=== PATIENT | female | born 1990 | race American Indian/Alaskan Native ===

== ENCOUNTER 2018-11-16 03:12 | Inpatient (IN) | payer OTHER ==
[2018-11-16 03:20] VITALS: BMI 32.8
--- NOTE | 2018-11-16 03:43 | ED PDOC ---
Arrival/HPI - General Time Seen by Provider: 11/16/18 03:16 Historian: Patient - History of Present Illness Narrative History of Present Illness (Text): 11/16/18 03:16 Pradeep Ying is a 27 year old female, with a past medical history of diabetes, who presents to the emergency department for headache and fever since today. Patient informs of induced vaginal secondary to preeclampsia and is day 4. Patient's OBGYN instructed patient to visit emergency department if complaining of fever after delivery. Patient is noted to have a heart rate of 170 in the emergency department. Patient denies any chills, dizziness, chest pain, palpitations, shortness of breath, dyspnea on exertion, cough, abdominal pain, nausea, vomiting, diarrhea, back pain, neck pain, or any other complaint. Time/Duration: 24 hours Symptom Onset: Gradual Symptom Course: Unchanged Activities at Onset: Light Context: Home Past Medical History - Provider Review Nursing Documentation Reviewed: Yes - Reproductive Currently : No Family/Social History - Physician Review Nursing Documentation Reviewed: Yes Family/Social History: No Known Family HX Allergies/Home Meds Allergies/Adverse Reactions: Allergies No Known Allergies Allergy (Verified 11/16/18 17:11) Home Medications: Home Meds Medication Instructions Recorded Confirmed Ibuprofen [Advil] 200 mg PO PRN PRN 11/16/18 11/16/18 Review of Systems - Physician Review All systems were reviewed & negative as marked: Yes - Review of Systems Constitutional: Fevers. absent: Other (chills) Respiratory: absent: SOB, Cough Cardiovascular: absent: Chest Pain, [place] Gastrointestinal: absent: Abdominal Pain, Diarrhea, Nausea, Vomiting Musculoskeletal: absent: Back Pain, Neck Pain Neurological: Headache. absent: Dizziness Physical Exam Vital Signs Reviewed: Yes Vital Signs Temp Pulse Resp BP Pulse Ox 11/16/18 03:30 103 F H 151 H 20 146/76 100 Temperature: Febrile Blood Pressure: Normal Pulse: Tachycardic Respiratory Rate: Normal Appearance: Positive for: Well-Appearing, Non-Toxic, Comfortable Pain Distress: None Mental Status: Positive for: Alert and Oriented X 3 - Systems Exam Head: Present: Atraumatic, Normocephalic Pupils: Present: PERRL Extroacular Muscles: Present: EOMI Conjunctiva: Present: Normal Mouth: Present: Moist Mucous Membranes Neck: Present: Normal Range of Motion Respiratory/Chest: Present: Clear to Auscultation, Good Air Exchange. No: Respiratory Distress, Accessory Muscle Use Cardiovascular: Present: Normal S1, S2, Tachycardic. No: Murmurs Abdomen: No: Tenderness, Distention, Peritoneal Signs Back: Present: Normal Inspection Upper Extremity: Present: Normal Inspection. No: Cyanosis, Edema Lower Extremity: Present: Normal Inspection. No: Edema Skin: Present: Warm, Dry, Normal Color. No: Rashes Psychiatric: Present: Alert, Oriented x 3, Normal Insight, Normal Concentration Medical Decision Making ED Course and Treatment: 11/16/18 03:11 Impression: Patient is a 27 year old female who presents to the emergency department with headache and fever s/p induced secondary to preeclampsia and is day 4. Patient instructed by OBGYN to visit [facility] if complaining of fever. Differential Diagnosis included but are not limited to: Plan: -- Labs -- EKG -- Chest X-Ray -- Adesonine 6 mg/2ml Inj -- IV Fluids -- Urinalysis -- Reassess and disposition Prior Visits: Notes and results from previous visits were reviewed. Progress Notes: case d/w dr perez accepts case admit for sepsis attempts to reach pt ob unsuccessful - RAD Interpretation Radiology Orders: 11/16/18 03:42 CHEST PORTABLE [RAD] Stat - EKG Interpretation EKG Interpretation (Text): 11/16/18 07:02 sinus tachycardia rate 170 nssts changes - Scribe Statement The provider has reviewed the documentation as recorded by the Scribe Robert Lewis All medical record entries made by the Scribe were at my direction and personally dictated by me. I have reviewed the chart and agree that the record accurately reflects my personal performance of the history, physical exam, medical decision making, and the department course for this patient. I have also personally directed, reviewed, and agree with the discharge instructions and disposition. Disposition/Present on Arrival - Present on Arrival Any Indicators Present on Arrival: No - Disposition Have Diagnosis and Disposition been Completed?: Yes Diagnosis: Sepsis Disposition: HOSPITALIZED Disposition Time: 07:00 Patient Problems: Current Active Problems Problem Status Onset Sepsis Acute Condition: FAIR
[2018-11-16] MEDS ORDERED: Sodium Chloride 0.9% 1,000 ML IV SCH (03:45)
[2018-11-16 04:01] LABS: BASO # 0.01 K/mm3 (0.0-2.0); BASO % 0.1 % (0.0-3.0); EOS # 0.2 (0.0-0.7); EOS % 2.1 % (1.5-5.0); HEMOGLOBIN 10.9 g/dL (12.0-16.0); LYMPH # 1.8 (1.2-3.4); LYMPH % 16.1 % (22.0-35.0); MEAN CELL VOLUME 86.6 fl (80.0-105.0); MEAN CORPUSCULAR HEMOGLOBIN 28.6 pg (25.0-35.0); MEAN PLATELET VOLUME 9.5 fl (7.0-11.0); MONO # 0.5 (0.1-0.6); MONO % 4.8 % (1.0-6.0); RBC 3.81 10^6/uL (3.5-6.1); RED CELL DISTRIBUTION WIDTH 15.4 % (11.5-14.5); WHITE BLOOD COUNT 10.9 10^3/uL (4.5-11.0)
[2018-11-16 04:10] LABS: PH,URINE 7.5 (4.7-8.0); URINE BILIRUBIN NEGATIVE (NEGATIVE); URINE BLOOD LARGE (NEGATIVE); URINE GLUCOSE (UA) NEGATIVE (NEGATIVE); URINE LEUKOCYTE ESTERASE SMALL Leu/uL (NEGATIVE); URINE PROTEIN >=300 mg/dL (<30 mg/dL); URINE UROBILINOGEN 0.2 E.U./dL (<1 E.U./dL)
[2018-11-16 04:10] LABS: ALB/GLOB RATIO 0.8 (1.1-1.8); ALBUMIN 2.7 g/dL (3.0-4.8); ALT/SGPT 25 U/L (7-56); AST/SGOT 40 U/L (14-36); BLOOD UREA NITROGEN 10 mg/dL (7-21); CALCIUM 8.8 mg/dL (8.4-10.5); GFR NON-AFRICAN AMERICAN > 60
[2018-11-16 04:21] LABS: TROPONIN I 0.03 ng/mL
[2018-11-16 04:21] LABS: URINE APPEARANCE SL CLOUDY (CLEAR); URINE COLOR YELLOW (YELLOW)
[2018-11-16 04:23] LABS: URINE BACTERIA FEW /hpf; URINE RBC TNTC /hpf (0-2)
[2018-11-16 04:26] LABS: VENOUS BLOOD GAS BASE EXCESS 3.6 mmol/L (0.0-2.0); VENOUS BLOOD GAS PO2 53 mm/Hg (30-55); VENOUS BLOOD PH 7.51 (7.32-7.43)
[2018-11-16] MEDS ORDERED: Aztreonam 2 Gm in NS 100mL 100 ML IVPB STA (05:06)
[2018-11-16] MEDS ORDERED: Vancomycin 1gm in NS 250ml 1 GM/250 ML BAG IVPB STA (05:06)
[2018-11-16] MEDS ORDERED: Lactated Ringer's 1,800 ML IV SCH (05:15)
[2018-11-16] MEDS ORDERED: Sodium Chloride 0.9% 1,000 ML IV STA (06:49)
[2018-11-16 07:11] LABS: VENOUS BLOOD GAS BASE EXCESS 2.6 mmol/L (0.0-2.0); VENOUS BLOOD GAS PO2 38 mm/Hg (30-55); VENOUS BLOOD PH 7.43 (7.32-7.43)
--- NOTE | 2018-11-16 08:16 | RAD ---
Date of service: 11/16/2018 HISTORY: Fever COMPARISON: No prior. FINDINGS: LUNGS: No active pulmonary disease. PLEURA: No significant pleural effusion identified, no pneumothorax apparent. CARDIOVASCULAR: No aortic atherosclerotic calcification present. Normal cardiac size. No pulmonary vascular congestion. OSSEOUS STRUCTURES: No significant abnormalities. VISUALIZED UPPER ABDOMEN: Normal. OTHER FINDINGS: None. IMPRESSION: No active disease.
[2018-11-16 09:44] LABS: VENOUS BLOOD GAS BASE EXCESS 6.4 mmol/L (0.0-2.0); VENOUS BLOOD GAS PO2 29 mm/Hg (30-55); VENOUS BLOOD PH 7.48 (7.32-7.43)
--- NOTE | 2018-11-16 10:39 | CARD ---
APPROVED REPORT Date of service: 11/16/2018 EKG Measurement Heart [id number] <Conclusion> Sinus tachycardia Otherwise normal ECG
--- NOTE | 2018-11-16 10:40 | CARD ---
APPROVED REPORT Date of service: 11/16/2018 EKG Measurement Heart [id number] <Conclusion> Sinus tachycardia Otherwise normal ECG
[2018-11-16] MEDS ORDERED: Barium Sulfate Susp 2.1% w/v, 2.0% w/w 450 mL Bottle PO ONE (10:49)
--- NOTE | 2018-11-16 11:21 | PCM.SEPTIC ---
Sepsis Progress Note - Reassessment Type Date of Evaluation: 11/16/18 Time of Evaluation: :25 Reassessment Type: Non-invasive reassessment - Non Invasive Reassessment Were the most recent vital sign reviewed: Yes Vital Sign (Latest): Temp Pulse Resp BP Pulse Ox 99 F 118 H 20 134/79 98 11/16/18 09:19 11/16/18 09:19 11/16/18 09:19 11/16/18 09:19 11/16/18 09:19 Cardiovascular: Yes: Tachycardia Respiratory: Yes: Normal Breath Sounds. No: Rales, Rhonchi, Wheezing Capillary Refill: Normal (Less than 2 sec) Skin: Normal Color
--- NOTE | 2018-11-16 11:25 | CP.PCM.CON ---
<Timothy Muller - Last Filed: 11/16/18 13:17> History of Present Illness - History of Present Illness History of Present Illness: Timothy Muller D.O. PGY-3, Internal Medicine Resident, Infectious Disease Consultation Note 27 year old female with no significant PMH who presents 4 days post with fevers that stared yesterday. Infectious disease consultation requested for sepsis. Patient was seen and examined in ER bed 2. Patient states that she has been feeling unwell since yesterday and last night felt febrile. Patient tried to slept it off but had shaking chills and her said that she was "burning up." Patient had a 5lb 2 oz male at 36 weeks on 11/12 via vaginal delivery with no major complications. Patient denies having any issues with delivery of placenta or otherwise. Patient denies any pain in the breasts or issues with , in fact eager to get back to and seeing her baby. Patient passed a large blood clot Friday night but denies any malodorous discharge or discharge other than blood which has been slowly decreasing. Still has some lower abdominal/vaginal discomfort. States not sure if she had GBS testing. Of note, has not had a BM since the day before delivery so now 5 days. Review of Systems - Review of Systems All systems: reviewed and no additional remarkable complaints except (as per HPI) Past Patient History - Past Social History Smoking Status: Never Smoked - CARDIAC Other/Comment: preeclampsia - PULMONARY Hx Respiratory Disorders: No - NEUROLOGICAL Hx Neurological Disorder: No - HEENT Hx HEENT Problems: No - RENAL Hx Chronic Kidney Disease: No - ENDOCRINE/METABOLIC Hx Endocrine Disorders: No - HEMATOLOGICAL/ONCOLOGICAL Hx Blood Disorders: No - INTEGUMENTARY Hx Dermatological Problems: No - MUSCULOSKELETAL/RHEUMATOLOGICAL Hx Musculoskeletal Disorders: No - GASTROINTESTINAL Hx Gastrointestinal Disorders: No - GENITOURINARY/GYNECOLOGICAL Hx Genitourinary Disorders: No - PSYCHIATRIC Hx Psychophysiologic Disorder: No Hx Substance Use: No - SURGICAL HISTORY Hx Surgeries: No - ANESTHESIA Hx Anesthesia: No Meds Allergies/Adverse Reactions: Allergies Allergy/AdvReac Type Severity Reaction Status Date / Time No Known Allergies Allergy Verified 11/16/18 03:20 - Medications Medications: Current Medications Acetaminophen (Tylenol 325mg Tab) 650 mg PO Q4H PRN PRN Reason: Fever >100.5 F Bisacodyl (Dulcolax) 5 mg PO BID TIFFANIE Sodium Chloride (Sodium Chloride 0.9%) 1,000 mls @ 1,000 mls/hr IV .Q1H TIFFANIE Last Admin: 11/16/18 03:20 Dose: 1,000 mls/hr Lactated Ringer's (Lactated Ringer's) 1,800 mls @ 3,600 mls/hr IV .Q30M TIFFANIE Last Admin: 11/16/18 05:23 Dose: 3,600 mls/hr Sodium Chloride (Sodium Chloride 0.9%) 1,000 mls @ 100 mls/hr IV .Q10H STA Stop: 11/16/18 16:48 Last Admin: 11/16/18 07:33 Dose: 100 mls/hr Physical Exam - Constitutional Appears: Non-toxic, No Acute Distress - Head Exam Head Exam: ATRAUMATIC, NORMOCEPHALIC - Eye Exam Eye Exam: EOMI, PERRL. absent: Scleral icterus - ENT Exam ENT Exam: Mucous Membranes Moist, Normal Oropharynx - Neck Exam Neck exam: Positive for: Normal Inspection - Respiratory Exam Respiratory Exam: Clear to Auscultation Bilateral. absent: Rales, Rhonchi, Wheezes - Cardiovascular Exam Cardiovascular Exam: RRR, +S1, +S2. absent: Gallop, Rubs - GI/Abdominal Exam GI & Abdominal Exam: Hypoactive Bowel Sounds, Soft, Tenderness (mild suprapubic). absent: Distended - Extremities Exam Extremities exam: Positive for: normal capillary refill. Negative for: calf tenderness, pedal edema, tenderness - Neurological Exam Neurological exam: Alert, CN II-XII Intact, Oriented x3 - Psychiatric Exam Psychiatric exam: Anxious - Skin Skin Exam: Dry, Warm Results - Vital Signs Recent Vital Signs: Last Vital Signs Temp 99 F 11/16/18 09:19 Pulse 118 H 11/16/18 09:19 Resp 20 11/16/18 09:19 BP 134/79 11/16/18 09:19 Pulse Ox 98 11/16/18 09:19 - Labs Result Diagrams: 11/16/18 03:30 11/16/18 03:30 Labs: Laboratory Results - last 24 hr 11/16/18 11/16/18 11/16/18 03:24 03:30 03:30 WBC 10.9 RBC 3.81 Hgb 10.9 L Hct 33.0 L MCV 86.6 MCH 28.6 MCHC 33.0 RDW 15.4 H Plt Count 318 MPV 9.5 Neut % (Auto) 76.9 H Lymph % (Auto) 16.1 L [place] % (Auto) 4.8 Eos % (Auto) 2.1 Baso % (Auto) 0.1 Lymph # (Auto) 1.8 [place] # (Auto) 0.5 Eos # (Auto) 0.2 Baso # (Auto) 0.01 Absolute Neuts (auto) 8.38 H pO2 VBG pH VBG pCO2 VBG HCO3 VBG Total CO2 VBG O2 Sat (Calc) VBG Base Excess VBG Potassium Glucose Lactate FiO2 Crit Value Called To Crit Value Called By Blood Gas Notified Time Sodium 134 Potassium 4.1 Chloride 102 Carbon Dioxide 26 Anion Gap 10 BUN 10 Creatinine 0.9 Est GFR ( Amer) > 60 Est GFR (Non-Af Amer) > 60 POC Glucose (mg/dL) 84 Random Glucose 88 Calcium 8.8 Total Bilirubin 0.3 AST 40 H ALT 25 Alkaline Phosphatase 157 H Troponin I 0.03 Total Protein 6.1 Albumin 2.7 L Globulin 3.4 Albumin/Globulin Ratio 0.8 L Venous Blood Potassium Urine Color Urine Appearance Urine pH Ur Specific [place] Urine Protein Urine Glucose (UA) Urine Ketones Urine Blood Urine Nitrate Urine Bilirubin Urine Urobilinogen Ur Leukocyte Esterase Urine RBC Urine WBC Ur Epithelial Cells Urine Bacteria Influenza Typ A,B (EIA) 11/16/18 11/16/18 11/16/18 03:50 03:50 04:18 WBC RBC Hgb Hct MCV MCH MCHC RDW Plt Count MPV Neut % (Auto) Lymph % (Auto) [place] % (Auto) Eos % (Auto) Baso % (Auto) Lymph # (Auto) [place] # (Auto) Eos # (Auto) Baso # (Auto) Absolute Neuts (auto) pO2 53 VBG pH 7.51 H VBG pCO2 33.0 L VBG HCO3 26.3 VBG Total CO2 27.3 VBG O2 Sat (Calc) 92.4 H VBG Base Excess 3.6 H VBG Potassium 4.4 Glucose 92 Lactate 2.7 H FiO2 21.0 Crit Value Called To Carlos moreland rn ed Crit Value Called By [facility] Blood Gas Notified Time 426 Sodium 139.0 Potassium Chloride 106.0 Carbon Dioxide Anion Gap BUN Creatinine Est GFR ( Amer) Est GFR (Non-Af Amer) POC Glucose (mg/dL) Random Glucose Calcium Total Bilirubin AST ALT Alkaline Phosphatase Troponin I Total Protein Albumin Globulin Albumin/Globulin Ratio Venous Blood Potassium 4.4 Urine Color Yellow Urine Appearance Sl cloudy Urine pH 7.5 Ur Specific [place] 1.025 Urine Protein >=300 H Urine Glucose (UA) Negative Urine Ketones Negative Urine Blood Large H Urine Nitrate Negative Urine Bilirubin Negative Urine Urobilinogen 0.2 Ur Leukocyte Esterase Small H Urine RBC Tntc H Urine WBC 1 - 3 Ur Epithelial Cells 1 - 3 Urine Bacteria Few Influenza Typ A,B (EIA) Negative for flu a/b 11/16/18 11/16/18 06:47 09:20 WBC RBC Hgb Hct MCV MCH MCHC RDW Plt Count MPV Neut % (Auto) Lymph % (Auto) [place] % (Auto) Eos % (Auto) Baso % (Auto) Lymph # (Auto) [place] # (Auto) Eos # (Auto) Baso # (Auto) Absolute Neuts (auto) pO2 38 29 L VBG pH 7.43 7.48 H VBG pCO2 41.0 41.0 VBG HCO3 27.2 30.5 H VBG Total CO2 28.5 H 31.8 H VBG O2 Sat (Calc) 74.6 H 59.1 VBG Base Excess 2.6 H 6.4 H VBG Potassium 3.6 4.2 Glucose 79 96 Lactate 1.8 1.4 FiO2 21.0 21.0 Crit Value Called To Crit Value Called By Blood Gas Notified Time Sodium 139.0 141.0 Potassium Chloride 108.0 H 109.0 H Carbon Dioxide Anion Gap BUN Creatinine Est GFR ( Amer) Est GFR (Non-Af Amer) POC Glucose (mg/dL) Random Glucose Calcium Total Bilirubin AST ALT Alkaline Phosphatase Troponin I Total Protein Albumin Globulin Albumin/Globulin Ratio Venous Blood Potassium 3.6 4.2 Urine Color Urine Appearance Urine pH Ur Specific [place] Urine Protein Urine Glucose (UA) Urine Ketones Urine Blood Urine Nitrate Urine Bilirubin Urine Urobilinogen Ur Leukocyte Esterase Urine RBC Urine WBC Ur Epithelial Cells Urine Bacteria Influenza Typ A,B (EIA) Assessment & Plan - Assessment and Plan (Free Text) Assessment: 27 year old female with no significant PMH who presents 4 days post with fevers that stared yesterday. Infectious disease consultation requested for sepsis. Plan: Sepsis, possible endometritis given setting of recent STAT transvaginal US ordered Received aztreonam and vanco in the ER Given that she is lactating will start unasyn BCxs ordered Urine Cxs ordered Genital cxs ordered Received fluid bolus Will monitor closely Patient was seen and examined and case to be discussed with attending physician Thank you for the pleasure of participating in the care of this interesting patient - Date & Time Date: 11/16/18 Time: 09:30 <Babar Meza - Last Filed: 11/16/18 15:13> Meds - Medications Medications: Current Medications Acetaminophen (Tylenol 325mg Tab) 650 mg PO Q4H PRN PRN Reason: Fever >100.5 F Bisacodyl (Dulcolax) 5 mg PO BID TIFFANIE Last Admin: 11/16/18 12:49 Dose: 5 mg Sodium Chloride (Sodium Chloride 0.9%) 1,000 mls @ 1,000 mls/hr IV .Q1H TIFFANIE Last Admin: 11/16/18 03:20 Dose: 1,000 mls/hr Lactated Ringer's (Lactated Ringer's) 1,800 mls @ 3,600 mls/hr IV .Q30M TIFFANIE Last Admin: 11/16/18 05:23 Dose: 3,600 mls/hr Sodium Chloride (Sodium Chloride 0.9%) 1,000 mls @ 100 mls/hr IV .Q10H STA Stop: 11/16/18 16:48 Last Admin: 11/16/18 07:33 Dose: 100 mls/hr Doxycycline Hyclate 100 mg/ (Sodium Chloride) 100 mls @ 100 mls/hr IVPB Q12 TIFFANIE; Protocol Stop: 11/25/18 15:16 Meropenem (Merrem Iv 1 Gm Premix) 1 gm in 50 mls @ 100 mls/hr IVPB Q8 TIFFANIE; Protocol Stop: 11/25/18 15:16 Results - Vital Signs Recent Vital Signs: Last Vital Signs Temp 99 F 11/16/18 09:19 Pulse 118 H 11/16/18 09:19 Resp 20 11/16/18 09:19 BP 134/79 11/16/18 09:19 Pulse Ox 98 11/16/18 09:19 - Labs Result Diagrams: 11/16/18 03:30 11/16/18 03:30 Labs: Laboratory Results - last 24 hr 11/16/18 11/16/18 11/16/18 03:24 03:30 03:30 WBC 10.9 RBC 3.81 Hgb 10.9 L Hct 33.0 L MCV 86.6 MCH 28.6 MCHC 33.0 RDW 15.4 H Plt Count 318 MPV 9.5 Neut % (Auto) 76.9 H Lymph % (Auto) 16.1 L [place] % (Auto) 4.8 Eos % (Auto) 2.1 Baso % (Auto) 0.1 Lymph # (Auto) 1.8 [place] # (Auto) 0.5 Eos # (Auto) 0.2 Baso # (Auto) 0.01 Absolute Neuts (auto) 8.38 H pO2 VBG pH VBG pCO2 VBG HCO3 VBG Total CO2 VBG O2 Sat (Calc) VBG Base Excess VBG Potassium Glucose Lactate FiO2 Crit Value Called To Crit Value Called By Blood Gas Notified Time Sodium 134 Potassium 4.1 Chloride 102 Carbon Dioxide 26 Anion Gap 10 BUN 10 Creatinine 0.9 Est GFR ( Amer) > 60 Est GFR (Non-Af Amer) > 60 POC Glucose (mg/dL) 84 Random Glucose 88 Calcium 8.8 Total Bilirubin 0.3 AST 40 H ALT 25 Alkaline Phosphatase 157 H Troponin I 0.03 Total Protein 6.1 Albumin 2.7 L Globulin 3.4 Albumin/Globulin Ratio 0.8 L Venous Blood Potassium Urine Color Urine Appearance Urine pH Ur Specific [place] Urine Protein Urine Glucose (UA) Urine Ketones Urine Blood Urine Nitrate Urine Bilirubin Urine Urobilinogen Ur Leukocyte Esterase Urine RBC Urine WBC Ur Epithelial Cells Urine Bacteria Influenza Typ A,B (EIA) 11/16/18 11/16/18 11/16/18 03:50 03:50 04:18 WBC RBC Hgb Hct MCV MCH MCHC RDW Plt Count MPV Neut % (Auto) Lymph % (Auto) [place] % (Auto) Eos % (Auto) Baso % (Auto) Lymph # (Auto) [place] # (Auto) Eos # (Auto) Baso # (Auto) Absolute Neuts (auto) pO2 53 VBG pH 7.51 H VBG pCO2 33.0 L VBG HCO3 26.3 VBG Total CO2 27.3 VBG O2 Sat (Calc) 92.4 H VBG Base Excess 3.6 H VBG Potassium 4.4 Glucose 92 Lactate 2.7 H FiO2 21.0 Crit Value Called To Carlos moreland airborne and air delivery specialist Crit Value Called By [facility] Blood Gas Notified Time 426 Sodium 139.0 Potassium Chloride 106.0 Carbon Dioxide Anion Gap BUN Creatinine Est GFR ( Amer) Est GFR (Non-Af Amer) POC Glucose (mg/dL) Random Glucose Calcium Total Bilirubin AST ALT Alkaline Phosphatase Troponin I Total Protein Albumin Globulin Albumin/Globulin Ratio Venous Blood Potassium 4.4 Urine Color Yellow Urine Appearance Sl cloudy Urine pH 7.5 Ur Specific [place] 1.025 Urine Protein >=300 H Urine Glucose (UA) Negative Urine Ketones Negative Urine Blood Large H Urine Nitrate Negative Urine Bilirubin Negative Urine Urobilinogen 0.2 Ur Leukocyte Esterase Small H Urine RBC Tntc H Urine WBC 1 - 3 Ur Epithelial Cells 1 - 3 Urine Bacteria Few Influenza Typ A,B (EIA) Negative for flu a/b 11/16/18 11/16/18 06:47 09:20 WBC RBC Hgb Hct MCV MCH MCHC RDW Plt Count MPV Neut % (Auto) Lymph % (Auto) [place] % (Auto) Eos % (Auto) Baso % (Auto) Lymph # (Auto) [place] # (Auto) Eos # (Auto) Baso # (Auto) Absolute Neuts (auto) pO2 38 29 L VBG pH 7.43 7.48 H VBG pCO2 41.0 41.0 VBG HCO3 27.2 30.5 H VBG Total CO2 28.5 H 31.8 H VBG O2 Sat (Calc) 74.6 H 59.1 VBG Base Excess 2.6 H 6.4 H VBG Potassium 3.6 4.2 Glucose 79 96 Lactate 1.8 1.4 FiO2 21.0 21.0 Crit Value Called To Crit Value Called By Blood Gas Notified Time Sodium 139.0 141.0 Potassium Chloride 108.0 H 109.0 H Carbon Dioxide Anion Gap BUN Creatinine Est GFR ( Amer) Est GFR (Non-Af Amer) POC Glucose (mg/dL) Random Glucose Calcium Total Bilirubin AST ALT Alkaline Phosphatase Troponin I Total Protein Albumin Globulin Albumin/Globulin Ratio Venous Blood Potassium 3.6 4.2 Urine Color Urine Appearance Urine pH Ur Specific [place] Urine Protein Urine Glucose (UA) Urine Ketones Urine Blood Urine Nitrate Urine Bilirubin Urine Urobilinogen Ur Leukocyte Esterase Urine RBC Urine WBC Ur Epithelial Cells Urine Bacteria Influenza Typ A,B (EIA) Attending/Attestation - Attestation I have personally seen and examined this patient.: Yes I have fully participated in the care of the patient.: Yes I have reviewed all pertinent clinical information: Yes
--- NOTE | 2018-11-16 11:52 | US ---
Date of service: 11/16/2018 HISTORY: Fever. Abnormal lfts COMPARISON: None. TECHNIQUE: Sonographic evaluation of the right upper quadrant of the abdomen. FINDINGS: LIVER: Liver is enlarged measuring nearly 21 cm in CC dimension.. Liver demonstrates smooth contour and normal echotexture.. No mass. No intrahepatic bile duct dilatation. GALLBLADDER: Unremarkable. No gallstones. Probable gallbladder fold though small polyp not excluded COMMON BILE DUCT: Measures 5.4 mm. No stones. No dilatation. PANCREAS: Unremarkable as visualized. No mass. No ductal dilatation. RIGHT KIDNEY: Measures 13.3 x 4.3 x 4.3 cm in length. Normal echogenicity. No calculus, mass, or hydronephrosis. AORTA: No aneurysmal dilatation. IVC: Unremarkable. OTHER FINDINGS: None . IMPRESSION: Mild hepatomegaly.. Probable gallbladder fold though small polyp not excluded.
--- NOTE | 2018-11-16 12:23 | US ---
HISTORY: Leg pain and swelling. Evaluate for DVT PHYSICIAN(S): Ramana Glynn MD. TECHNIQUE: Duplex sonography and color-flow Doppler with graded compression were used to evaluate the deep venous systems of both lower extremities. FINDINGS: The visualized deep venous systems of both lower extremities are sonographically normal and compressible. Normal wave forms and augmentation are seen. There is no sonographic evidence for deep venous thrombosis in the visualized segments of both lower extremities. IMPRESSION: No sonographic evidence for deep venous thrombosis in the visualized segments of both lower extremities.
[2018-11-16] MEDS: Bisacodyl 5mg EC Tab PO SCH ×2 (12:49→19:53)
[2018-11-16] MEDS: Meropenem IV 1 gm in NS 1 GM/50 ML BAG IVPB SCH ×2 (15:24→21:19)
--- NOTE | 2018-11-16 15:31 | CT ---
Date of service: 11/16/2018 PROCEDURE: CT Chest with contrast (Pulmonary Angiogram) HISTORY: SEPSIS COMPARISON: None available. TECHNIQUE: Axial computed tomography images were obtained of the chest in the pulmonary arterial phase of enhancement. Coronal and sagittal reformatted images were created and reviewed. Intravenous contrast dose: 150 cc of Omni 350 Radiation dose: Total exam DLP = 333.68 mGy-cm. This CT exam was performed using one or more of the following dose reduction techniques: Automated exposure control, adjustment of the mA and/or kV according to patient size, and/or use of iterative reconstruction technique. FINDINGS: PULMONARY ARTERIES: Unremarkable. No pulmonary embolism. AORTA: No acute findings. No thoracic aortic aneurysm. No aortic atherosclerotic calcification or mural plaque present. LUNGS: Unremarkable. No nodule, mass or pulmonary consolidation. PLEURAL SPACES: Unremarkable. No effusion or pneumothorax. HEART: Unremarkable. No cardiomegaly. No significant pericardial effusion. LYMPH NODES: No lymphadenopathy. BONES, CHEST WALL: Unremarkable. No fracture or destructive lesion OTHER FINDINGS: Unremarkable. IMPRESSION: Unremarkable CT pulmonary angiogram. No pulmonary embolus.
--- NOTE | 2018-11-16 15:36 | CT ---
Date of service: 11/16/2018 PROCEDURE: CT Abdomen and Pelvis with contrast HISTORY: Constipation COMPARISON: None. TECHNIQUE: Contrast dose: 150 cc of Omni 350 Radiation dose: Total exam DLP = 614.85 mGy-cm. This CT exam was performed using one or more of the following dose reduction techniques: Automated exposure control, adjustment of the mA and/or kV according to patient size, and/or use of iterative reconstruction technique. FINDINGS: LOWER THORAX: Unremarkable. LIVER: Unremarkable. No gross lesion or ductal dilatation. GALLBLADDER AND BILE DUCTS: Unremarkable. PANCREAS: Unremarkable. No gross lesion or ductal dilatation. SPLEEN: Unremarkable. ADRENALS: Unremarkable. No mass. KIDNEYS AND URETERS: Unremarkable. No hydronephrosis. No solid mass. VASCULATURE: Unremarkable. No aortic aneurysm. No aortic atherosclerotic calcification or mural plaque present. BOWEL: Unremarkable. No obstruction. No gross mural thickening. APPENDIX: Normal appendix. PERITONEUM: Unremarkable. No free fluid. No free air. LYMPH NODES: Unremarkable. No enlarged lymph nodes. BLADDER: Unremarkable. REPRODUCTIVE: The uterus is enlarged and has a heterogeneous enhancement pattern. This is most likely due to fibroids. The uterine fundus measures 8.8 x 12 cm. Ultrasound follow-up may be indicated BONES: No acute fracture. OTHER FINDINGS: None. IMPRESSION: No acute intra-abdominal findings. The uterus is enlarged and has a heterogeneous enhancement pattern. This is most likely due to fibroids. The uterine fundus measures 8.8 x 12 cm
--- NOTE | 2018-11-16 17:17 | US ---
Date of service: 11/16/2018 HISTORY: ?endometritis, fever COMPARISON: None available. TECHNIQUE: Transvaginal pelvic ultrasound CT abdomen pelvis with contrast performed 11/16/18 FINDINGS: Examination markedly limited due to patient discomfort. UTERUS: Measures 16.1 x 5.3 x 12.0 cm. Heterogeneous. Anteverted. ENDOMETRIUM: Measures 1.4 cm in diameter and appears heterogeneous with fluid and/or blood products. No evidence of hypervascularity. CERVIX: No cervical abnormality identified. RIGHT OVARY: Measures 3.5 x 1.9 x 4.6 cm. Blood flow is demonstrated. LEFT OVARY: Measures 4.0 x 1.9 x 4.1 cm. Blood flow is demonstrated. FREE FLUID: No significant free fluid noted. OTHER FINDINGS: None. IMPRESSION: Limited study as above. heterogeneous uterus. Endometrium measures approximately 1.4 cm with small fluid and/or blood products.
[2018-11-16] MEDS ORDERED: Pneumococcal 23-Valent Vaccine IM ONE (17:35)
[2018-11-16] MEDS ORDERED: Influenza Vaccine 60 mcg/0.5 mL SYR (4YR UP) IM ONE (17:35)
[2018-11-16] MEDS: Sodium Chloride 0.9% 1,000 ML IV SCH (23:24)
[2018-11-17] MEDS: Meropenem IV 1 gm in NS 1 GM/50 ML BAG IVPB SCH ×3 (05:30→22:24)
[2018-11-17 07:40] LABS: BASO # 0.02 K/mm3 (0.0-2.0); BASO % 0.2 % (0.0-3.0); EOS # 0.1 (0.0-0.7); EOS % 1.2 % (1.5-5.0); LYMPH % 19.1 % (22.0-35.0); MEAN CELL VOLUME 87.4 fl (80.0-105.0); MEAN CORPUSCULAR HEMOGLOBIN 27.9 pg (25.0-35.0); MEAN CORPUSCULAR HGB CONC 31.9 g/dl (31.0-37.0); MEAN PLATELET VOLUME 9.1 fl (7.0-11.0); MONO # 1.2 (0.1-0.6); MONO % 11.6 % (1.0-6.0); RBC 3.58 10^6/uL (3.5-6.1); RED CELL DISTRIBUTION WIDTH 15.7 % (11.5-14.5); WHITE BLOOD COUNT 10.5 10^3/uL (4.5-11.0)
[2018-11-17 07:52] LABS: ALB/GLOB RATIO 0.8 (1.1-1.8); ALBUMIN 2.7 g/dL (3.0-4.8); ALT/SGPT 35 U/L (7-56); AST/SGOT 65 U/L (14-36); BLOOD UREA NITROGEN 7 mg/dL (7-21); CALCIUM 8.3 mg/dL (8.4-10.5); GFR NON-AFRICAN AMERICAN > 60
[2018-11-17] MEDS: Sodium Chloride 0.9% 1,000 ML IV SCH (09:27)
[2018-11-17] MEDS: Bisacodyl 5mg EC Tab PO SCH ×2 (09:27→17:42)
[2018-11-17] MEDS: Enoxaparin 40 mg Syringe SC SCH (09:28)
--- NOTE | 2018-11-17 16:08 | CP.PCM.PN ---
<Timothy Muller - Last Filed: 11/17/18 16:04> Subjective - Date & Time of Evaluation Date of Evaluation: 11/17/18 Time of Evaluation: 09:10 - Subjective Subjective: Timothy Muller D.O. PGY-3, Internal Medicine Resident, Infectious Disease Progress Note 27 year old female with no significant PMH who presents 4 days post with fevers that stared yesterday. Infectious disease consultation requested for sepsis. Patient was seen and examined at bedside. Doing significantly better. Very comfortable. Wants to go home. Was able to defecate. Objective - Vital Signs/Intake and Output Vital Signs (last 24 hours): Temp Pulse Resp BP Pulse Ox 98.0 F 97 H 18 144/95 H 98 11/17/18 12:00 11/17/18 12:00 11/17/18 12:00 11/17/18 12:00 11/16/18 09:19 Intake and Output: 11/17/18 11/17/18 06:59 18:59 Intake Total 2840 Balance 2840 - Medications Medications: Current Medications Acetaminophen (Tylenol 325mg Tab) 650 mg PO Q4H PRN PRN Reason: Headache Bisacodyl (Dulcolax) 5 mg PO BID [facility] Last Admin: 11/17/18 09:27 Dose: 5 mg Enoxaparin Sodium (Lovenox) 40 mg SC DAILY [facility]; Protocol Last Admin: 11/17/18 09:28 Dose: 40 mg Famotidine (Pepcid) 20 mg PO 1000,2200 [facility] Last Admin: 11/17/18 09:28 Dose: 20 mg Doxycycline Hyclate 100 mg/ (Sodium Chloride) 100 mls @ 100 mls/hr IVPB Q12 [facility]; Protocol Stop: 11/25/18 15:16 Last Admin: 11/17/18 09:28 Dose: 100 mls/hr Meropenem (Merrem Iv 1 Gm Premix) 1 gm in 50 mls @ 100 mls/hr IVPB Q8 [facility]; Protocol Stop: 11/25/18 15:16 Last Admin: 11/17/18 14:16 Dose: 100 mls/hr Sodium Chloride (Sodium Chloride 0.9%) 1,000 mls @ 100 mls/hr IV .Q10H [facility] Last Admin: 11/17/18 09:27 Dose: 100 mls/hr - Labs Labs: 11/17/18 07:00 11/17/18 07:00 - Constitutional Appears: Non-toxic, No Acute Distress - Head Exam Head Exam: ATRAUMATIC, NORMOCEPHALIC - Eye Exam Eye Exam: EOMI, PERRL. absent: Scleral icterus - ENT Exam ENT Exam: Mucous Membranes Moist, Normal Oropharynx - Neck Exam Neck exam: Positive for: Normal Inspection - Respiratory Exam Respiratory Exam: Clear to Auscultation Bilateral. absent: Rales, Rhonchi, Wheezes - Cardiovascular Exam Cardiovascular Exam: RRR, +S1, +S2. absent: Gallop, Rubs - GI/Abdominal Exam GI & Abdominal Exam: soft, NT, ND - Extremities Exam Extremities exam: Positive for: normal capillary refill. Negative for: calf tenderness, pedal edema, tenderness - Neurological Exam Neurological exam: Alert, CN II-XII Intact, Oriented x3 - Skin Skin Exam: Dry, Warm Assessment and Plan - Assessment and Plan (Free Text) Assessment: 27 year old female with no significant PMH who presents 4 days post with fevers that stared yesterday. Infectious disease consultation requested for sepsis. Plan: Sepsis, possible endometritis given setting of recent vs urinary tract infection Urine growing gram negative angela Currently on doxy/merrem day 2 BCxs ordered Urine Cxs negative 2/2 day 2 Genital cxs pending We will follow with you Patient was seen and examined and case to be discussed with attending physician Thank you for the pleasure of participating in the care of this interesting patient <Babar Meza - Last Filed: 11/17/18 16:38> Objective - Vital Signs/Intake and Output Vital Signs (last 24 hours): Temp Pulse Resp BP Pulse Ox 98.0 F 97 H 18 144/95 H 98 11/17/18 12:00 11/17/18 12:00 11/17/18 12:00 11/17/18 12:00 11/16/18 09:19 Intake and Output: 11/17/18 11/17/18 06:59 18:59 Intake Total 2840 Balance 2840 - Medications Medications: Current Medications Acetaminophen (Tylenol 325mg Tab) 650 mg PO Q4H PRN PRN Reason: Headache Bisacodyl (Dulcolax) 5 mg PO BID [facility] Last Admin: 11/17/18 09:27 Dose: 5 mg Enoxaparin Sodium (Lovenox) 40 mg SC DAILY [facility]; Protocol Last Admin: 11/17/18 09:28 Dose: 40 mg Famotidine (Pepcid) 20 mg PO 1000,2200 [facility] Last Admin: 11/17/18 09:28 Dose: 20 mg Doxycycline Hyclate 100 mg/ (Sodium Chloride) 100 mls @ 100 mls/hr IVPB Q12 S ; Protocol Stop: 11/25/18 15:16 Last Admin: 11/17/18 09:28 Dose: 100 mls/hr Meropenem (Merrem Iv 1 Gm Premix) 1 gm in 50 mls @ 100 mls/hr IVPB Q8 [facility]; Protocol Stop: 11/25/18 15:16 Last Admin: 11/17/18 14:16 Dose: 100 mls/hr Sodium Chloride (Sodium Chloride 0.9%) 1,000 mls @ 100 mls/hr IV .Q10H [facility] Last Admin: 11/17/18 09:27 Dose: 100 mls/hr - Labs Labs: 11/17/18 07:00 11/17/18 07:00 Attending/Attestation - Attestation I have personally seen and examined this patient.: Yes I have fully participated in the care of the patient.: Yes I have reviewed all pertinent clinical information, including history, physical exam and plan: Yes
--- NOTE | 2018-11-17 19:44 | CON ---
DATE: 11/17/2018 HISTORY OF PRESENT ILLNESS: This is a 27-year-old G2, P1-0-1-1, status post spontaneous vaginal delivery of a male , weighing 5 pounds 14 ounces at [facility] on 11/11/2018. The patient reports that she had been induced on 11/10/2018 for preeclampsia, received IV magnesium and delivered on 11/11/2018. She reports that she started having severe chills, needed 3 comforters on 11/15/2018. She also started feeling tingling in her fingers and toes and had a very bad headache. She also reports that she had passed a huge clot on 11/14/2018. The patient was admitted to [facility] yesterday for a fever and sepsis and has been treated with antibiotics. The patient reports that she is only spotting now and she feels much better and that most of her symptoms have resolved. She does report an on and off headache, worse with lying down. Patient denies vision changes, upper abdominal pain, nausea, and vomiting. Patient reports that she will start breast pumping and discarding the milk for now. PAST MEDICAL HISTORY: Healthy. She has sickle cell trait. PAST SURGICAL HISTORY: None. MEDICATIONS: Acetaminophen as needed, Dulcolax, doxycycline 100 mg IV every 12 hours, Lovenox 40 subcutaneously daily, Pepcid 20 mg p.o., meropenem 1 g every 8 hours, and normal saline. ALLERGIES: NO KNOWN DRUG ALLERGIES. SOCIAL HISTORY: The patient denies tobacco, alcohol, or illicit drug use. FAMILY HISTORY: Maternal grandmother from breast cancer and she has a sister with sickle cell disease. OBSTETRICAL HISTORY: The patient underwent miscarriage in 2016, did not need D and C. Recent delivery as above. GYNECOLOGIC HISTORY: Menarche at 13, regular periods. The patient reports history of Chlamydia about 10 years ago and denies any abnormal Pap. PHYSICAL EXAMINATION: VITAL SIGNS: She has been afebrile. Her T-max was 103 at 03:30 in the morning on 11/16/2018. She has been afebrile for 24 hours now. Her pulse when she first came in, she was tachycardic, 151 with admission; her pulse is now 94 and her most recent blood pressure is 144/96. BP's range 120's -140's/60's-90's GENERAL: The patient appears well, sitting up in bed, no acute distress, and nontoxic. HEART: Regular rate and rhythm. LUNGS: Clear to auscultation bilaterally. ABDOMEN: Soft and nontender. Fundus is firm and nontender EXTREMITIES: Nontender. No edema. LABORATORY DATA: Yesterday, white blood cell count was 10.9, today is 10.5; hemoglobin yesterday was 10.9 and it is now 10 and platelets are stable. Her blood culture - there is no growth after 24 hours. IMAGING: Transvaginal ultrasound on 11/16/2018: Endometrium measures 1.4 cm with small fluid and/or blood products. Chest, abdomen and pelvis CT scan on 11/16/2018: Impression was no acute intraabdominal findings. The uterus is enlarged and has a heterogenous enhancement pattern, this is most likely due to fibroids, uterine fundus measures 8.8 x [address] on 11/16/2018: unremarkable CT pulmonary angiogram: no pulmonary embolus. ASSESSMENT AND PLAN: This is a 27-year-old 2, para 1-0-1-1, status post vaginal delivery on 11/11/2018 who was admitted with fever/sepsis. She is now currently on IV meropenem and IV doxycycline and has been afebrile for 24 hours. Urine and blood cultures are still pending. Her bleeding is spotting now. Tylenol ordered as needed for headache Recommend that she stay on vitamins as long as she is . Recommend that she follow up with her OB a few days after discharge home to follow blood pressure. Binh Adams MD TUCKER
[2018-11-17 20:14] LABS: HEPATITIS B SURFACE AG Negative (NEGATIVE)
[2018-11-17 20:20] LABS: HEPATITIS A IGM NEGATIVE (NEGATIVE); HEPATITIS B CORE AB NEGATIVE (NEGATIVE)
[2018-11-17 20:32] LABS: HEPATITIS C ANTIBODY NEGATIVE (NEGATIVE)
--- NOTE | 2018-11-17 20:33 | HP ---
DATE OF EXAM: 11/16/2018 CHIEF COMPLAINT: A 27-year-old female who came in with fever of 103. HISTORY OF PRESENT ILLNESS: Iris day #4 came to the ER, because she is having chills, fever at home for a day or 2, got worse, and came to the ER for evaluation. The patient denied any foul smelling vaginal discharge. Denied dysuria. Denied abdominal pain or chest pain. She did have mild headache that seems better. She has no nausea, no vomiting, no diarrhea, and no cough. No other symptoms associated with fever, chills and feeling weak. PAST MEDICAL HISTORY: As I mentioned, she is day #4. FAMILY HISTORY: Noncontributory. ALLERGIES: NO KNOWN ALLERGIES. MEDICATIONS AT HOME: She does not really take p.r.n. REVIEW OF SYSTEMS: Negative except above symptoms, but all system reviews were negative. PHYSICAL EXAMINATION: GENERAL: The patient was seen and examined. VITAL SIGNS: When she came in; her temperature 103, heart rate 128, blood pressure 132/80, respirations 21, and saturation 99% on room air. HEAD AND NECK: Normal. No JVD. No thyromegaly. CHEST: Clear bilaterally. CARDIAC: First sound and second sound normal. No murmur, rub or gallop. ABDOMEN: Soft and nontender. EXTREMITIES: No edema. NEUROLOGIC: Normal. LABORATORY STUDIES: The patient had white count 10.9, hemoglobin 10.9, hematocrit 33, and platelets 318. Sodium 134, potassium 4.1, chloride 102, bicarb 26, BUN 10, and creatinine 0.9. Liver function test, elevation of AST 40 and alk phos of 157, otherwise total bilirubin is normal and AST is normal. The patient also when she came in, she had EKG sinus tachy, otherwise, normal EKG. Chest x-ray shows no active pulmonary disease. IMPRESSION AND PLAN: 1. This is a 27-year-old female with fever. We will admit the patient, blood cultures, urine cultures, and we will start the patient on vancomycin and get Infectious Disease consult. 2. Abnormal liver function test benign exam. We will get ultrasound of the liver and gallbladder. Also, we are going to get venous Doppler of both lower extremities and if there is no obvious source for infection and fever, thromboembolic phenomena in this patient with high risk for deep venous thrombosis and tachycardia. We will get CT angio of the chest and CT abdomen and pelvis with IV contrast. We will continue current therapy, IV fluid, and Tylenol p.r.n. for fever. Continue recommendation by ID. We will give GI and DVT prophylaxes and also give her Dulcolax for constipation. Brian Neely MD
[2018-11-17 20:41] LABS: HEMOGLOBIN 10.2 g/dL (12.0-16.0); MEAN CELL VOLUME 87.7 fl (80.0-105.0); MEAN CORPUSCULAR HEMOGLOBIN 28.4 pg (25.0-35.0); MEAN CORPUSCULAR HGB CONC 32.4 g/dl (31.0-37.0); RBC 3.59 10^6/uL (3.5-6.1); RED CELL DISTRIBUTION WIDTH 15.5 % (11.5-14.5); WHITE BLOOD COUNT 9.4 10^3/uL (4.5-11.0)
[2018-11-17 20:47] LABS: ALB/GLOB RATIO 0.8 (1.1-1.8); ALBUMIN 2.6 g/dL (3.0-4.8); ALT/SGPT 29 U/L (7-56); AST/SGOT 54 U/L (14-36); BLOOD UREA NITROGEN 9 mg/dL (7-21); CALCIUM 8.4 mg/dL (8.4-10.5); GFR NON-AFRICAN AMERICAN > 60
[2018-11-17 23:27] VITALS: O2SAT 100
[2018-11-18] MEDS: Sodium Chloride 0.9% 1,000 ML IV SCH ×3 (03:11→16:38)
[2018-11-18] MEDS: Meropenem IV 1 gm in NS 1 GM/50 ML BAG IVPB SCH ×3 (05:58→21:43)
[2018-11-18 07:46] LABS: BASO # 0.03 K/mm3 (0.0-2.0); BASO % 0.3 % (0.0-3.0); EOS # 0.4 (0.0-0.7); HEMOGLOBIN 10.8 g/dL (12.0-16.0); LYMPH # 2.7 (1.2-3.4); LYMPH % 30.8 % (22.0-35.0); MEAN CORPUSCULAR HGB CONC 32.1 g/dl (31.0-37.0); MEAN PLATELET VOLUME 8.9 fl (7.0-11.0); MONO # 0.8 (0.1-0.6); RBC 3.86 10^6/uL (3.5-6.1); RED CELL DISTRIBUTION WIDTH 15.5 % (11.5-14.5); WHITE BLOOD COUNT 8.7 10^3/uL (4.5-11.0)
[2018-11-18] MEDS: Bisacodyl 5mg EC Tab PO SCH ×3 (10:47→18:01)
[2018-11-18] MEDS: Enoxaparin 40 mg Syringe SC SCH (10:47)
--- NOTE | 2018-11-18 14:44 | CP.PCM.PN ---
<Timothy Muller - Last Filed: 11/18/18 14:39> Subjective - Date & Time of Evaluation Date of Evaluation: 11/18/18 Time of Evaluation: 09:50 - Subjective Subjective: Timothy Muller D.O. PGY-3, Internal Medicine Resident, Infectious Disease Progress Note 27 year old female with no significant PMH who presents 4 days post with fevers that stared yesterday. Infectious disease consultation requested for sepsis. Patient was seen and examined at bedside. Feeling remarkably better. Wants to go home. Objective - Vital Signs/Intake and Output Vital Signs (last 24 hours): Temp Pulse Resp BP Pulse Ox 97.9 F 83 18 128/87 100 11/18/18 12:00 11/18/18 14:00 11/18/18 12:00 11/18/18 12:00 11/18/18 06:00 Intake and Output: 11/18/18 11/18/18 06:59 18:59 Intake Total 2160 Balance 2160 - Medications Medications: Current Medications Acetaminophen (Tylenol 325mg Tab) 650 mg PO Q4H PRN PRN Reason: Headache Bisacodyl (Dulcolax) 5 mg PO BID [facility] Last Admin: 11/18/18 10:49 Dose: Not Given Doxycycline Hyclate (Doryx) 100 mg PO Q12 [facility]FF[facility]IE; Protocol Last Admin: 11/18/18 10:47 Dose: 100 mg Enoxaparin Sodium (Lovenox) 40 mg SC DAILY [facility]IE; Protocol Last Admin: 11/18/18 10:47 Dose: 40 mg Famotidine (Pepcid) 20 mg PO 1000,2200 [facility] Last Admin: 11/18/18 10:47 Dose: 20 mg Meropenem (Merrem Iv 1 Gm Premix) 1 gm in 50 mls @ 100 mls/hr IVPB Q8 [facility]IE; Protocol Stop: 11/25/18 15:16 Last Admin: 11/18/18 05:58 Dose: 100 mls/hr Sodium Chloride (Sodium Chloride 0.9%) 1,000 mls @ 100 mls/hr IV .Q10H [facility] Last Admin: 11/18/18 03:11 Dose: 100 mls/hr - Labs Labs: 11/18/18 07:30 11/17/18 20:15 - Constitutional Appears: Non-toxic, No Acute Distress - Head Exam Head Exam: ATRAUMATIC, NORMOCEPHALIC - Eye Exam Eye Exam: EOMI, PERRL. absent: Scleral icterus - ENT Exam ENT Exam: Mucous Membranes Moist, Normal Oropharynx - Neck Exam Neck exam: Positive for: Normal Inspection - Respiratory Exam Respiratory Exam: Clear to Auscultation Bilateral. absent: Rales, Rhonchi, Wheezes - Cardiovascular Exam Cardiovascular Exam: RRR, +S1, +S2. absent: Gallop, Rubs - GI/Abdominal Exam GI & Abdominal Exam: soft, NT, ND - Extremities Exam Extremities exam: Positive for: normal capillary refill. Negative for: calf tenderness, pedal edema, tenderness - Neurological Exam Neurological exam: Alert, CN II-XII Intact, Oriented x3 - Skin Skin Exam: Dry, Warm Assessment and Plan - Assessment and Plan (Free Text) Assessment: 27 year old female with no significant PMH who presents 4 days post with fevers that stared yesterday. Infectious disease consultation requested for sepsis. Plan: Sepsis, possible endometritis given setting of recent vs urinary tract infection Urine growing E. coli BCxs 1/2 + for gram negative angela Genital cxs pending Afebrile No leukocytosis Continue on doxy/merrem day 3 We will follow with you Patient was seen and examined and case to be discussed with attending physician Thank you for the pleasure of participating in the care of this interesting patient <Babar Meza - Last Filed: 11/18/18 15:10> Objective - Vital Signs/Intake and Output Vital Signs (last 24 hours): Temp Pulse Resp BP Pulse Ox 97.9 F 83 18 128/87 100 11/18/18 12:00 11/18/18 14:00 11/18/18 12:00 11/18/18 12:00 11/18/18 06:00 Intake and Output: 11/18/18 11/18/18 06:59 18:59 Intake Total 2160 Balance 2160 - Medications Medications: Current Medications Acetaminophen (Tylenol 325mg Tab) 650 mg PO Q4H PRN PRN Reason: Headache Bisacodyl (Dulcolax) 5 mg PO BID [facility] Last Admin: 11/18/18 10:49 Dose: Not Given Doxycycline Hyclate (Doryx) 100 mg PO Q12 [facility]; Protocol Last Admin: 11/18/18 10:47 Dose: 100 mg Enoxaparin Sodium (Lovenox) 40 mg SC DAILY [facility]; Protocol Last Admin: 11/18/18 10:47 Dose: 40 mg Famotidine (Pepcid) 20 mg PO 1000,2200 [facility] Last Admin: 11/18/18 10:47 Dose: 20 mg Meropenem (Merrem Iv 1 Gm Premix) 1 gm in 50 mls @ 100 mls/hr IVPB Q8 [facility]; Protocol Stop: 11/25/18 15:16 Last Admin: 11/18/18 14:49 Dose: 100 mls/hr Sodium Chloride (Sodium Chloride 0.9%) 1,000 mls @ 100 mls/hr IV .Q10H [facility] Last Admin: 11/18/18 14:49 Dose: 100 mls/hr - Labs Labs: 11/18/18 07:30 11/17/18 20:15 Attending/Attestation - Attestation I have personally seen and examined this patient.: Yes I have fully participated in the care of the patient.: Yes I have reviewed all pertinent clinical information, including history, physical exam and plan: Yes
--- NOTE | 2018-11-18 17:50 | PN ---
DATE: 11/17/2018 SUBJECTIVE: The patient is comfortable. No distress. She wants to go home. I explained to her the waiting for blood culture results. She has no chest pain, no short of breath, stable. PHYSICAL EXAMINATION: VITAL SIGNS: Temperature is 97.8, heart rate is 76, blood pressure 131/82, respirations 20, saturation 100%. HEAD AND NECK: Normal. No JVD. No thyromegaly. CHEST: Clear. ABDOMEN: Soft and nontender. EXTREMITIES: No edema. NEUROLOGIC: Normal. LABORATORY STUDY: Urine culture shows E coli, sensitive to Rocephin. Blood cultures showed gram-negative angela. We are still waiting for culture sensitivity. We are repeating the blood culture again and is still waiting for the results. IMPRESSION AND PLAN: 1. Sepsis due to gram negative, positive urine culture, positive blood culture. Continue intravenous Merrem plus doxycycline. We spoke with Dr. Meza. We will continue current therapy for now. 2. The patient is day 4, we are discarding the milk in the breast and has been explained to her that she cannot feed the baby and we will explain more on discharge what antibiotics she will be on. PLAN: Continue current therapy and follow up clinically. The patient had remarkable testing done including CT chest, CT of abdomen and pelvis and venous Doppler of both lower extremities, also she had ultrasound of the liver was negative and she also had hepatitis. She had which was negative. She had hepatitis and HIV test which was negative. Hepatitis A, B and C came back negative. The patient asked urologist her influenza came back negative. I did discuss all the results with the patient, she is anxious, she wants to see her baby. I did explain it is fine, do not feed the baby, and the baby's few days could be risky to bring him to the hospital and I explained about the breast feeding and antibiotics. Brian Neely MD
[2018-11-19] MEDS: Sodium Chloride 0.9% 1,000 ML IV SCH (01:57)
[2018-11-19] MEDS: Meropenem IV 1 gm in NS 1 GM/50 ML BAG IVPB SCH ×2 (05:22→13:03)
[2018-11-19] MEDS: Bisacodyl 5mg EC Tab PO SCH (11:26)
[2018-11-19] MEDS: Enoxaparin 40 mg Syringe SC SCH (11:26)
--- NOTE | 2018-11-19 12:38 | CP.PCM.CON ---
History of Present Illness - History of Present Illness History of Present Illness: Otto Dangelo PGY2 GI Consult Note for Dr. Amin Reason for consult: lfts, grame negative blood culture,us negative gall bladder Ms. Ying is a 27 year old AAF with a PMH of anemia and sickle cell trait who is admitted for sepsis due to gram negative bacteremia from source. Patient is post vaginal delivery on 11/11/18. She was induced due to pre-eclampsia. GI is consulted for elevated lfts. the patient denies any abdominal pain, or any weakness or any skin changes. She states that during her . She was following up with an OB and received proper follow-up. She has never had any issues with her liver. Patient states that her headache has also resolved. She denies any nausea, vomiting, diarrhea or constipation. 12 point ROS was reviewed and is otherwise unremarkable. PMH: as above PSH: none Meds: reviewed as per MAR Allergies: NKDA SHx: denies tobacco, ETOH or drug use FHx: grandmother: breast CA. sister w/ sickle cell disease Review of Systems - Review of Systems All systems: reviewed and no additional remarkable complaints except (as per HPI) Past Patient History - Past Social History Smoking Status: Never Smoked - CARDIAC Hx Cardiac Disorders: Yes Other/Comment: preeclampsia - PULMONARY Hx Respiratory Disorders: No - NEUROLOGICAL Hx Neurological Disorder: No - HEENT Hx HEENT Problems: No - RENAL Hx Chronic Kidney Disease: No - ENDOCRINE/METABOLIC Hx Endocrine Disorders: Yes ( INDUCED DM.) - HEMATOLOGICAL/ONCOLOGICAL Hx Blood Disorders: No - INTEGUMENTARY Hx Dermatological Problems: No - MUSCULOSKELETAL/RHEUMATOLOGICAL Hx Musculoskeletal Disorders: No Hx Falls: No - GASTROINTESTINAL Hx Gastrointestinal Disorders: Yes (CONSTIPATION) - GENITOURINARY/GYNECOLOGICAL Hx Genitourinary Disorders: Yes Other/Comment: - PSYCHIATRIC Hx Psychophysiologic Disorder: No Hx Substance Use: No - SURGICAL HISTORY Hx Surgeries: No - ANESTHESIA Hx Anesthesia: No Meds Home Medications: Home Medication List Medication Instructions Recorded Confirmed Type Cefpodoxime [Vantin] 200 mg PO BID #20 tab 11/19/18 Rx Allergies/Adverse Reactions: Allergies Allergy/AdvReac Type Severity Reaction Status Date / Time No Known Allergies Allergy Verified 11/16/18 17:11 - Medications Medications: Current Medications Acetaminophen (Tylenol 325mg Tab) 650 mg PO Q4H PRN PRN Reason: Headache Last Admin: 11/18/18 23:04 Dose: 650 mg Bisacodyl (Dulcolax) 5 mg PO BID [facility] Last Admin: 11/19/18 11:26 Dose: Not Given Doxycycline Hyclate (Doryx) 100 mg PO Q12 [facility]; Protocol Last Admin: 11/18/18 21:43 Dose: 100 mg Enoxaparin Sodium (Lovenox) 40 mg SC DAILY [facility]; Protocol Last Admin: 11/19/18 11:26 Dose: Not Given Famotidine (Pepcid) 20 mg PO 1000,2200 [facility] Last Admin: 11/18/18 21:43 Dose: 20 mg Meropenem (Merrem Iv 1 Gm Premix) 1 gm in 50 mls @ 100 mls/hr IVPB Q8 [facility]; Protocol Stop: 11/25/18 15:16 Last Admin: 11/19/18 05:22 Dose: 100 mls/hr Sodium Chloride (Sodium Chloride 0.9%) 1,000 mls @ 100 mls/hr IV .Q10H [facility] Last Admin: 11/19/18 01:57 Dose: 100 mls/hr Physical Exam - Constitutional Appears: Well, Non-toxic, No Acute Distress - Head Exam Head Exam: ATRAUMATIC, NORMAL INSPECTION, NORMOCEPHALIC - Eye Exam Eye Exam: EOMI, Normal appearance, PERRL. absent: Scleral icterus Pupil Exam: NORMAL ACCOMODATION, PERRL Additional comments: pale conjunctiva - ENT Exam ENT Exam: Mucous Membranes Moist, Normal Exam - Neck Exam Neck exam: Positive for: Full Rom, Normal Inspection - Respiratory Exam Respiratory Exam: Clear to Auscultation Bilateral, NORMAL BREATHING PATTERN - Cardiovascular Exam Cardiovascular Exam: REGULAR RHYTHM, RRR, +S1, +S2 - GI/Abdominal Exam GI & Abdominal Exam: Normal Bowel Sounds, Soft. absent: Distended, Firm, Organomegaly, Tenderness - Extremities Exam Extremities exam: Positive for: full ROM, normal inspection. Negative for: pedal edema - Back Exam Back exam: NORMAL INSPECTION. absent: CVA tenderness (L), CVA tenderness (R) - Neurological Exam Neurological exam: Alert, CN II-XII Intact, Normal Gait, Oriented x3, Reflexes Normal - Skin Skin Exam: Dry, Intact, Normal Color, Warm Results - Vital Signs Recent Vital Signs: Last Vital Signs Temp 98.4 F 11/19/18 06:00 Pulse 95 H 11/19/18 10:00 Resp 22 11/19/18 06:00 BP 113/75 11/19/18 06:00 Pulse Ox 100 11/19/18 06:00 - Labs Result Diagrams: 11/18/18 07:30 11/17/18 20:15 Labs: Laboratory Results - last 24 hr 11/17/18 07:00 T.pallidum Ab (FTA-ABS) Nonreactive HIV 1&2 Ag/Ab, 4th Gen Nonreactive Assessment & Plan - Assessment and Plan (Free Text) Assessment: 27 year old AAF with a PMH of anemia and sickle cell trait who is admitted for sepsis due to gram negative bacteremia from source. Patient is post vaginal delivery on 11/11/18. She was induced due to pre-eclampsia. GI is consulted for elevated lfts. Pattern of liver enzymes hint toward placental release of ALP. Abdominal US and hepatitis panel were reviewed. Plan: - avoid Tylenol and other hepatotoxic medications - INR ordered - GGT ordered - LFTs should be followed by outpatient PMD to ensure they are improving - Abd US and Hepatitis panel was noted - further recs per Dr. Amin Case was reviewed and discussed with Dr. Amin
--- NOTE | 2018-11-19 12:42 | PN ---
DATE: 11/18/2018 SUBJECTIVE: The patient is comfortable. No distress. No nausea, vomiting. Afebrile. The patient has no new complaints. PHYSICAL EXAMINATION: VITAL SIGNS: Blood pressure 115/77, heart rate is 88, temperature 98.4, saturating 100%, respiratory rate 22. HEAD AND NECK: Normal. No JVD. No thyromegaly. CHEST: Clear bilaterally. CARDIAC: First sound and second sound normal. No murmur, rub or gallop. ABDOMEN: Soft and nontender. EXTREMITIES: No edema. NEUROLOGIC: Normal. LABORATORY DATA: Her laboratory studies shows white count 9.4, hemoglobin 10.2, hematocrit 31.5, platelets 314. Chemistry; sodium 135, potassium 4.2, chloride 104, bicarb 29, BUN 7, creatinine 0.8. The patient also has abnormal AST, ALT, alkaline phosphatase. Magnesium was low at 1.9. IMPRESSION: 1. Gram negative sepsis. Continue Merrem, doxycycline. continue IV antibiotics. 2. Abnormal liver function test. negative. Ultrasound negative. We will get gastroenterology to look into this The patient has benign exam, nontender. 3. Urinary tract infection, urosepsis. Gram negative in the urine. We will continue current therapy. PLAN: Continue current therapy. Follow up clinically. Brian Neely MD
--- NOTE | 2018-11-19 13:07 | CP.PCM.PN ---
<Timothy Muller - Last Filed: 11/19/18 13:04> Subjective - Date & Time of Evaluation Date of Evaluation: 11/19/18 Time of Evaluation: 07:10 - Subjective Subjective: Timothy Muller D.O. PGY-3, Internal Medicine Resident, Infectious Disease Progress Note 27 year old female with no significant PMH who presents 4 days post with fevers that stared yesterday. Infectious disease consultation requested for sepsis. Patient was seen and examined at bedside. Patient feeling much better and eager to go home. Objective - Vital Signs/Intake and Output Vital Signs (last 24 hours): Temp Pulse Resp BP Pulse Ox 98.4 F 95 H 22 113/75 100 11/19/18 06:00 11/19/18 10:00 11/19/18 06:00 11/19/18 06:00 11/19/18 06:00 Intake and Output: 11/19/18 11/19/18 06:59 18:59 Intake Total 3228 Balance 3228 - Medications Medications: Current Medications Acetaminophen (Tylenol 325mg Tab) 650 mg PO Q4H PRN PRN Reason: Headache Last Admin: 11/18/18 23:04 Dose: 650 mg Bisacodyl (Dulcolax) 5 mg PO BID TIFFANIE Last Admin: 11/19/18 11:26 Dose: Not Given Doxycycline Hyclate (Doryx) 100 mg PO Q12 TIFFANIE; Protocol Last Admin: 11/19/18 13:03 Dose: Not Given Enoxaparin Sodium (Lovenox) 40 mg SC DAILY TIFFANIE; Protocol Last Admin: 11/19/18 11:26 Dose: Not Given Famotidine (Pepcid) 20 mg PO 1000,2200 TIFFANIE Last Admin: 11/19/18 13:03 Dose: Not Given Meropenem (Merrem Iv 1 Gm Premix) 1 gm in 50 mls @ 100 mls/hr IVPB Q8 TIFFANIE; Protocol Stop: 11/25/18 15:16 Last Admin: 11/19/18 13:03 Dose: Not Given Sodium Chloride (Sodium Chloride 0.9%) 1,000 mls @ 100 mls/hr IV .Q10H TIFFANIE Last Admin: 11/19/18 01:57 Dose: 100 mls/hr - Labs Labs: 11/18/18 07:30 11/17/18 20:15 - Constitutional Appears: Non-toxic, No Acute Distress - Head Exam Head Exam: ATRAUMATIC, NORMOCEPHALIC - Eye Exam Eye Exam: EOMI, PERRL. absent: Scleral icterus - ENT Exam ENT Exam: Mucous Membranes Moist, Normal Oropharynx - Neck Exam Neck exam: Positive for: Normal Inspection - Respiratory Exam Respiratory Exam: Clear to Auscultation Bilateral. absent: Rales, Rhonchi, Wheezes - Cardiovascular Exam Cardiovascular Exam: RRR, +S1, +S2. absent: Gallop, Rubs - GI/Abdominal Exam GI & Abdominal Exam: soft, NT, ND - Extremities Exam Extremities exam: Positive for: normal capillary refill. - Neurological Exam Neurological exam: Alert, CN II-XII Intact, Oriented x3 - Skin Skin Exam: Dry, Warm Assessment and Plan - Assessment and Plan (Free Text) Assessment: 27 year old female with no significant PMH who presents 4 days post with fevers that stared yesterday. Infectious disease consultation requested for sepsis. Plan: Sepsis with bacteremia from urinary source with E Coli Urine and BCx growing sensitive E. coli Afebrile No leukocytosis Ok to go home on vantin 200mg PO BID for 10 days Explicitly discussed with patient that she is to pump and dump the breast milk for 2 days before she is able to return to her Patient verbalized understanding and agreement with aforementioned plan Patient was seen and examined and case to be discussed with attending physician Thank you for the pleasure of participating in the care of this interesting patient <Babar Meza - Last Filed: 11/19/18 17:27> Objective - Vital Signs/Intake and Output Vital Signs (last 24 hours): Temp Pulse Resp BP Pulse Ox 98.8 F 88 18 129/86 100 11/19/18 12:00 11/19/18 12:00 11/19/18 12:00 11/19/18 12:00 11/19/18 06:00 Intake and Output: 11/19/18 11/19/18 06:59 18:59 Intake Total 3228 600 Balance 3228 600 - Labs Labs: 11/18/18 07:30 11/17/18 20:15 Attending/Attestation - Attestation I have personally seen and examined this patient.: Yes I have fully participated in the care of the patient.: Yes I have reviewed all pertinent clinical information, including history, physical exam and plan: Yes
[2018-11-19] MEDS ORDERED: Magnesium Oxide 400 mg Tab UD PO SCH ×2 (13:30→18:00)
[2018-11-19 15:58] VITALS: BP 129/86; PULSE 88; RESP 18; TEMP 98.8
[2018-11-19] MEDS ORDERED: Cefpodoxime (Vantin) 200 mg Tab PO SCH (22:00)
--- NOTE | 2018-11-21 01:24 | DS ---
HISTORY OF PRESENT ILLNESS: A 27-year-old female day 4 and 5, came into the hospital with Gram-negative septicemia in the blood and in the urine. The patient seen by ID consult, Dr. Meza, Gynecology and had a CT with IV contrast with chest, abdomen and venous Doppler both lower extremity, which came back negative. The patient was given Merrem plus doxycycline, she did well and finally blood culture showed Gram negative sensitive to Rocephin and her IV antibiotic was discontinued and the patient was discharged on p.o. Vantin for 10 days. The patient was discharged and she is hemodynamically stable. PHYSICAL EXAMINATION: VITAL SIGNS: Temperature 98.8, heart rate 88, blood pressure 129/86, and respirations 18. HEAD AND NECK: Normal. No JVD. No thyromegaly. CHEST: Clear bilaterally. CARDIAC: First sound and second sound normal. No murmur, rub, or gallop. ABDOMEN: Soft and nontender. EXTREMITIES: No edema. NEUROLOGIC: Normal. LABORATORY DATA: White count 8.7, hemoglobin 10.8,hematocrit 33.6, and platelet 354. Chemistry; sodium 136, potassium 4.8, chloride 105, bicarb 27, BUN 9, and creatinine 0.6. Liver function test is normal except AST 54. DISCHARGE DIAGNOSES: 1. Septicemia. 2. Gram-negative urinary tract infections or urosepsis. 3. Anemia, iron deficiency. 4. Overweight. 5. condition. DISCHARGE INSTRUCTIONS: The patient advised to discard the milk for two more days and then start feeding the baby normally. Continue Vantin for 10 days, see me within a week in the office. Brian Neely MD
== END 2018-11-19 14:45 | disposition home or self-care (01) | DRG 776 ==
LOC: ED 03:12 → ERH 06:47 → 2RNO 09:38
PROVIDERS: ADMIT Internal Medicine; ATTEND Internal Medicine
DX: O85 Puerperal sepsis (principal); N39.0 Urinary tract infection, site not specified; B96.20 Unspecified Escherichia coli [E. coli] as the cause of diseases classified elsewhere; O14.95 Unspecified pre-eclampsia, complicating the puerperium; D57.3 Sickle-cell trait; Z86.32 Personal history of gestational diabetes; K59.00 Constipation, unspecified; Z83.2 Family history of diseases of the blood and blood-forming organs and certain disorders involving the immune mechanism; Z80.3 Family history of malignant neoplasm of breast